=== PATIENT | female | born 1955 | race Caucasian/White ===

== ENCOUNTER 2022-12-16 12:34 | Day surgery (SDC) | payer OTHER ==
[~2022-12-16] VITALS: Ht 152.4 cm; Wt 53.8 kg
[~2022-12-16 12:34] MED LIST: ATEN50; AZIT500 PO; CARB200 PO; DILT60 PO; DIVA500EC; Epitol200 MG PO; LEVFLO500 PO; LEVO750; LEVSOD100 PO; LEVSOD112 PO; LEVSOD75; LISI20 PO; LISINOPRIL-HCT1 EAC1 PO; LOSHYD; OMEP20ER PO; PROAIR RESPICL90 MCG IH; Prednisone20 MG PO; RXHYDGUAS PO; TRIHYD253B
[2022-12-16] MEDS ORDERED: metoprolol succinate (13:12)
--- NOTE | 2022-12-16 13:18 | NUR ---
12/16/22 1318 Marimar Lawler AT 1312 PLEDGET AT 1315
== END 2022-12-16 15:00 | disposition home or self-care (01) ==
LOC: ORSCSDS 12:34
PROVIDERS: Ophthalmology
PROC: 08RK3JZ Replacement of Left Lens with Synthetic Substitute, Percutaneous Approach (ICD-10-PCS; principal; 2022-12-16 14:00)
DX: H25.12 Age-related nuclear cataract, left eye (principal); I10 Essential (primary) hypertension; E03.9 Hypothyroidism, unspecified; Z87.891 Personal history of nicotine dependence; Z79.899 Other long term (current) drug therapy
CPT/HCPCS: J2001; J2250; J3010; J3301; J7040; V2632

== ENCOUNTER → 2023-12-06 | Outpatient (CLI) | payer OTHER ==
[~2023-12-06] MED LIST changes: +metoprolol succinate
[2023-12-06 14:10] LABS: CHOL/HDL RATIO 2.1; Cholesterol 210 mg/dL (50-200); Free Thyroxine 0.77 ng/dL (0.70-1.60); HDL Cholesterol 98 mg/dL (>39); LDL/HDL RATIO 0.9; Low Density Lipoprotein Chol 86 mg/dL (0-110); Triglycerides 131 mg/dL (30-160); Very Low Density Lipoprot Chol 26 mg/dL (6-32)
[2023-12-06 14:16] LABS: Carbamazepine 5.4 ug/mL (4.0-12.0)
[2023-12-07 20:07] LABS: A/G RATIO 1.5 (1.2-2.2); BILIRUBIN, TOTAL 0.3 mg/dL (0.0-1.2); CALCIUM, SERUM 9.5 mg/dL (8.7-10.3); CREATININE, SERUM 0.53 mg/dL (0.57-1.00); GLOBULIN, TOTAL 2.8 g/dL (1.5-4.5); POTASSIUM, SERUM 4.6 mmol/L (3.5-5.2); PROTEIN, TOTAL, SERUM 7.1 g/dL (6.0-8.5)
== END | disposition home or self-care (01) ==
LOC: LAB SHORT 12:21 → LAB 12:21
PROVIDERS: Hospitalist
DX: E78.5 Hyperlipidemia, unspecified (principal); I10 Essential (primary) hypertension; E03.9 Hypothyroidism, unspecified; R56.9 Unspecified convulsions
CPT/HCPCS: 80053; 80061; 80156; 84439; 84443